=== PATIENT | male | born 1945 | race African-American/Black ===

== ENCOUNTER 2018-07-14 17:16 | Emergency (ER) | payer OTHER ==
[~2018-07-14] VITALS: Ht 170.2 cm; Wt 77.1 kg
[2018-07-14 17:39] VITALS: Ht 170.2 cm; Wt 77.1 kg
[2018-07-14 18:35] VITALS: BP 175/107
== END 2018-07-14 19:37 | disposition home or self-care (01) ==
LOC: ED 17:16
DX: N40.0 Benign prostatic hyperplasia without lower urinary tract symptoms (principal); I10 Essential (primary) hypertension; F17.210 Nicotine dependence, cigarettes, uncomplicated; Z88.6 Allergy status to analgesic agent; Z88.8 Allergy status to other drugs, medicaments and biological substances; Z98.890 Other specified postprocedural states